=== PATIENT | male | born 1990 | race Caucasian/White ===

== ENCOUNTER 2016-06-22 14:00 | Outpatient (RCR) | payer OTHER | END 2016-06-27 | disposition home or self-care (01) | LOC: M OUTALCOH 14:00 | PROVIDERS: ATTEND Psychiatry & Neurology Psychiatry | DX: F12.20 Cannabis dependence, uncomplicated (principal); F15.20 Other stimulant dependence, uncomplicated; F17.200 Nicotine dependence, unspecified, uncomplicated ==

== ENCOUNTER 2016-07-24 08:45 | Outpatient (RCR) | payer MEDICAID | END 2016-07-25 | LOC: M OUTALCOH 08:45 | PROVIDERS: ATTEND Psychiatry & Neurology Psychiatry | DX: F15.20 Other stimulant dependence, uncomplicated (principal); F12.20 Cannabis dependence, uncomplicated; F17.200 Nicotine dependence, unspecified, uncomplicated ==

== ENCOUNTER 2016-08-23 16:00 | Outpatient (RCR) | payer MEDICAID | END 2016-08-25 | LOC: M OUTALCOH 16:00 | PROVIDERS: ATTEND Psychiatry & Neurology Psychiatry | DX: F12.20 Cannabis dependence, uncomplicated (principal); F15.20 Other stimulant dependence, uncomplicated; F17.200 Nicotine dependence, unspecified, uncomplicated ==

== ENCOUNTER 2016-09-20 16:00 | Outpatient (RCR) | payer MEDICAID | END 2016-09-24 | LOC: M OUTALCOH 16:00 | PROVIDERS: ATTEND Psychiatry & Neurology Psychiatry | DX: F17.200 Nicotine dependence, unspecified, uncomplicated (principal); F15.20 Other stimulant dependence, uncomplicated; F12.20 Cannabis dependence, uncomplicated ==

== ENCOUNTER 2016-10-24 08:00 | Outpatient (RCR) | payer MEDICAID | END 2016-10-25 | LOC: M OUTALCOH 08:00 | PROVIDERS: ATTEND Psychiatry & Neurology Psychiatry | DX: F17.200 Nicotine dependence, unspecified, uncomplicated (principal); F15.20 Other stimulant dependence, uncomplicated; F12.20 Cannabis dependence, uncomplicated ==

== ENCOUNTER 2016-11-23 14:00 | Outpatient (RCR) | payer MEDICAID | END 2016-11-24 | LOC: M OUTALCOH 14:00 | PROVIDERS: ATTEND Psychiatry & Neurology Psychiatry | DX: F17.200 Nicotine dependence, unspecified, uncomplicated (principal); F15.20 Other stimulant dependence, uncomplicated; F12.20 Cannabis dependence, uncomplicated ==

== ENCOUNTER 2016-12-08 09:00 | Outpatient (RCR) | payer MEDICAID, SELFPAY | END 2016-12-25 | LOC: M OUTALCOH 09:00 | PROVIDERS: ATTEND Psychiatry & Neurology Psychiatry | DX: F17.200 Nicotine dependence, unspecified, uncomplicated (principal); F15.20 Other stimulant dependence, uncomplicated; F12.20 Cannabis dependence, uncomplicated ==

== ENCOUNTER → 2017-07-02 | Outpatient (CLI) | payer OTHER | LOC: M OUTALCOH 08:15 | DX: Z13.9 Encounter for screening, unspecified (principal); F15.20 Other stimulant dependence, uncomplicated ==

== ENCOUNTER 2017-07-12 09:00 | Outpatient (RCR) | payer OTHER | END 2017-07-25 | LOC: M OUTALCOH 07-16 16:00 | DX: F15.20 Other stimulant dependence, uncomplicated (principal); F17.200 Nicotine dependence, unspecified, uncomplicated ==

== ENCOUNTER 2017-07-26 15:54 | Outpatient (RCR) | payer OTHER | END 2017-08-25 | LOC: M OUTALCOH 15:54 | DX: F15.20 Other stimulant dependence, uncomplicated (principal); F17.200 Nicotine dependence, unspecified, uncomplicated ==

== ENCOUNTER 2017-08-27 09:56 | Outpatient (RCR) | payer OTHER | END 2017-09-24 | LOC: M OUTALCOH 09-03 16:00 | DX: F15.20 Other stimulant dependence, uncomplicated (principal); F17.200 Nicotine dependence, unspecified, uncomplicated ==

== ENCOUNTER 2017-09-25 16:17 | Outpatient (RCR) | payer OTHER | END 2017-10-25 | LOC: M OUTALCOH 16:17 | DX: F15.20 Other stimulant dependence, uncomplicated (principal); F17.200 Nicotine dependence, unspecified, uncomplicated ==

== ENCOUNTER 2018-05-23 16:18 | Emergency (ER) | payer OTHER ==
[~2018-05-23] VITALS: Ht 182.9 cm; Wt 68.2 kg
--- NOTE | 2018-05-23 17:25 | REP ---
Head CT without contrast: History: Loss of consciousness. Comparison study: No comparison study. CT findings: Bone window settings demonstrate an intact bony calvarium. There is no evidence of skull fracture or incidental bony calvarial lesion. The visualized paranasal sinuses appear clear. No intraorbital abnormality is seen. On soft tissue window setting images; the lateral, third, and fourth ventricles are normal in size and position. Wilson-white differentiation pattern is normal above and below the tentorium. There are is no evidence of intracranial hemorrhage. No mass, edema, infarction, or midline shift is seen. No extra-axial fluid collection is appreciated. Impression: Negative noncontrast head CT. Electronically Signed by Nico Horan MD 05/23/2018 05:16 P
[2018-05-23] MEDS ORDERED: ADACEL/BOOSTRIX VACCINE (DIPHTH/PERTUSS/ACELL/TETANUS)0.5ML SYR (90715) IM ONE (17:45)
[2018-05-23 18:10] VITALS: BP 112/72
== END 2018-05-23 18:11 | disposition home or self-care (01) ==
LOC: M ED 16:18
DX: S01.01XA Laceration without foreign body of scalp, initial encounter (principal); W19.XXXA Unspecified fall, initial encounter; Y92.89 Other specified places as the place of occurrence of the external cause; Y99.0 Civilian activity done for income or pay; F17.210 Nicotine dependence, cigarettes, uncomplicated; Z88.0 Allergy status to penicillin

== ENCOUNTER 2018-11-07 12:44 | Emergency (ER) | payer OTHER, SELFPAY ==
[~2018-11-07] VITALS: Ht 182.9 cm; Wt 66.9 kg
[2018-11-07] MEDS ORDERED: LIDOCAINE 2% MDV 20 ML VIAL SC ONE (13:00)
--- NOTE | 2018-11-07 13:56 | REP ---
LEFT 3RD DIGIT, FOUR VIEWS: Four views left 3rd digit performed and demonstrate no fracture, dislocation, or intrinsic bone disease. There is soft tissue disruption at the tip of the digit without evidence of radiopaque foreign body in this region. Electronically Signed by Jose Wilson MD 11/07/2018 04:44 P
[2018-11-07 14:08] VITALS: BP 116/79
[2018-11-07] MEDS ORDERED: KEFL500C17 PO (14:10)
== END 2018-11-07 14:16 | disposition home or self-care (01) ==
LOC: M ED 12:44
DX: S61.213A Laceration without foreign body of left middle finger without damage to nail, initial encounter (principal); W26.8XXA Contact with other sharp object(s), not elsewhere classified, initial encounter; Y92.89 Other specified places as the place of occurrence of the external cause; Y99.0 Civilian activity done for income or pay; Z88.0 Allergy status to penicillin; F17.210 Nicotine dependence, cigarettes, uncomplicated

== ENCOUNTER 2021-03-16 17:12 | Emergency (ER) | payer SELFPAY ==
[~2021-03-16] VITALS: Ht 182.9 cm; Wt 63.6 kg
[~2021-03-16 17:12] MED LIST: KEFL500C17 PO
--- OUTSIDE RECORDS SUMMARY | 2021-03-16 17:17 | CCD ---
Author Author [facility] Organization [facility] Address Unknown Phone Unavailable Support Name Relationship Address Phone CHANA LOUIE Next Of Kin [address] [place] [address] [employer] Next Of Kin [address] [place] [phone] [employer] G[employer] Next Of Kin [address] [phone] [employer] X279 Next Of Kin Unknown MIKEY MORENO Next Of Kin Unknown UE Next Of Kin Unknown Unavailable ST Next Of Kin Unknown Unavailable R [employer] Next Of Kin [place], [place] [address] MIKEY MORENO Next Of Kin [address] [place] [address] GLADIS CULLEN Next Of Kin [address] [address] Re-disclosure Warning The records that you are about to access may contain information from federally-assisted alcohol or drug abuse programs. If such information is present, then the following federally mandated warning applies: This information has been disclosed to you from records protected by federal confidentiality rules (42 CFR part 2). The federal rules prohibit you from making any further disclosure of this information unless further disclosure is expressly permitted by the written consent of the person to whom it pertains or as otherwise permitted by 42 CFR part 2. A general authorization for the release of medical or other information is NOT sufficient for this purpose. The Federal rules restrict any use of the information to criminally investigate or prosecute any alcohol or drug abuse patient.The records that you are about to access may contain highly sensitive health information, the redisclosure of which is protected by Article 27-F of the [facility] Public Health law. If you continue you may have access to information: Regarding HIV / AIDS; Provided by facilities licensed or operated by the [facility] Office of Mental Health; or Provided by the [facility] Office for People With Developmental Disabilities. If such information is present, then the following [facility] mandated warning applies: This information has been disclosed to you from confidential records which are protected by state law. State law prohibits you from making any further disclosure of this information without the specific written consent of the person to whom it pertains, or as otherwise permitted by law. Any unauthorized further disclosure in violation of state law may result in a fine or halfway sentence or both. A general authorization for the release of medical or other information is NOT sufficient authorization for further disc losure. Medications No Information Insurance Providers Payer name Policy type / Coverage type Policy ID Covered democrat ID Covered democrat's relationship to ya Policy Ya Plan Information HMO BLUE [id number] SP [id number] [employer] O [id number] S [id number] [employer] SP [employer] [id number] SP [id number] CHELSI [id number] SP [id number] 100 O UNAVAILABLE UNAVAILA BLE OTHER WORKERS COMPENSATION [id number] SP [id number] MEDICAID [id number] SP [id number] SELF PAY ONLY [id number] SP [id number] [facility] [id number] SP [id number] [facility] [id number] SP [id number] SELF PAY ONLY UNK SP UNK SELF PAY UNAVAILABLE SP UNAVAILA BLE R FACTOR UNAVAILABLE UNAVAILA BLE SELF PAY ONLY [id number] SP [id number] Problems, Conditions, and Diagnoses No Information Surgeries/Procedures No Information Results ID Date Data Source [id number] 05/17/2020 12:00:00 AM EST [facility] Name Value Range Interpretation Code Description Data Aure rce(s) Supporting Document(s) SARS-CoV-2 (COVID-19) RNA [Presence] in Respiratory specimen by CONY with probe detection [facility] This lab was ordered by [facility] and reported by [employer] Procedure Social History No Information
--- OUTSIDE RECORDS SUMMARY | 2021-03-16 18:49 | CCD ---
Author Author [facility] Organization [facility] Address Unknown Phone Unavailable Support Name Relationship Address Phone TACOBLWTN Next Of Kin [address] [place] [address] CHANA LOUIE Next Of Kin [address] [place] [address] [employer] Next Of Kin [address] [place] [address] [employer] Next Of Kin [address] [phone] [employer] X279 Next Of Kin Unknown [phone] MIKEY MORENO Next Of Kin Unknown UE Next Of Kin Unknown Unavailable ST Next Of Kin Unknown Unavailable R [employer] Next Of Kin [place], [place] [address] MIKEY MORENO Next Of Kin [address] [place] [address] GLADIS CULLEN Next Of Kin [address] [address] Re-disclosure Warning The records that you are [...] is protected by Article 27-F of the [place] Public Health law. If you continue you may have access to information: Regarding HIV / AIDS; Provided by facilities licensed or operated by the [facility] Office of Mental Health; or Provided by the [facility] Office for People With Developmental Disabilities. If such information is present, then the following [facility] mandated warning applies: This information has been [...] law may result in a fine or assisted sentence or both. A general authorization for the release of medical or other information is NOT sufficient authorization for further disc losure. Medications No Information Insurance Providers Payer name Policy type / Coverage type Policy ID Covered libertarian ID Covered libertarian's relationship to ya Policy Ya Plan Information HMO BLUE [id number] SP [id number] [employer] O [id number] S [id number] [employer] SP [employer] [id number] SP [id number] CHELSI [id number] SP [id number] 100 O UNAVAILABLE UNAVAILA BLE OTHER WORKERS COMPENSATION [id number] SP [id number] MEDICAID [id number] SP [id number] SELF PAY ONLY [id number] SP [id number] [facility] [id number] SP [id number] [facility] [id number] SP [id number] SELF PAY ONLY UNK SP UNK SELF PAY UNAVAILABLE SP UNAVAILA BLE R FACTOR UNAVAILABLE UNAVAILA BLE SELF PAY ONLY [id number] SP [id number] Problems, Conditions, and Diagnoses No Information Surgeries/Procedures No Information Results ID Date Data Source [id number] 05/17/2020 12:00:00 AM EST [facility] Name Value Range Interpretation Code Description Data Aure rce(s) Supporting Document(s) SARS-CoV-2 (COVID-19) RNA [Presence] in Respiratory specimen by CONY with probe detection [facility] This lab was ordered by [facility] and reported by [employer]. Procedure Social History No Information
[2021-03-16 19:02] LABS: HEMATOCRIT 39.1 % (42.0-52.0); HEMOGLOBIN 13.4 g/dl (13.5-17.5); MEAN CORPUSCULAR HEMOGLOBIN 30.8 pg (27.0-33.0); MEAN CORPUSCULAR HGB CONC 34.3 g/dl (32.0-36.5); MEAN CORPUSCULAR VOLUME 89.9 fl (80.0-96.0); PLATELET COUNT, AUTOMATED 178 10^3/uL (150-450); RED BLOOD COUNT 4.35 10^6/uL (4.30-6.10); WHITE BLOOD COUNT 5.9 10^3/uL (4.0-10.0)
[2021-03-16 19:35] LABS: RSV AMPLIFICATION NEGATIVE (NEGATIVE)
[2021-03-16 19:39] LABS: ALBUMIN 3.8 GM/DL (3.2-5.2); ALT/SGPT 21 U/L (12-78); BILIRUBIN,DIRECT 0.2 MG/DL (0.0-0.2); BILIRUBIN,TOTAL 0.6 MG/DL (0.2-1.0); BLOOD UREA NITROGEN 7 MG/DL (7-18); CALCIUM LEVEL 8.5 MG/DL (8.5-10.1); CARBON DIOXIDE LEVEL 31 MEQ/L (21-32); CHLORIDE LEVEL 104 MEQ/L (98-107); CREATININE FOR GFR 0.91 MG/DL (0.70-1.30); GLOMERULAR FILTRATION RATE > 60.0 (>60); GLUCOSE, FASTING 89 MG/DL (70-100); POTASSIUM SERUM 3.8 MEQ/L (3.5-5.1); SODIUM LEVEL 139 MEQ/L (136-145); TOTAL PROTEIN 7.8 GM/DL (6.4-8.2)
[2021-03-16 19:40] LABS: ACETAMINOPHEN LEVEL < 2.0 UG/ML (10.0-30.0); ETHYL ALCOHOL (ETHANOL) < 0.003 % (0.000-0.010)
[2021-03-16 19:52] LABS: SALICYLATE LEVEL < 1.7 MG/DL (5.0-30.0)
[2021-03-16 20:11] LABS: AMPHETAMINES LEVEL URINE POSITIVE (NEGATIVE); BARBITURATES URINE NEGATIVE (NEGATIVE); BENZODIAZEPINES URINE NEGATIVE (NEGATIVE); CANNABINOIDS URINE POSITIVE (NEGATIVE); COCAINE METABOLITE URINE NEGATIVE (NEGATIVE); METHADONE URINE NEGATIVE (NEGATIVE); OPIATES URINE NEGATIVE (NEGATIVE); PHENCYCLIDINE URINE NEGATIVE (NEGATIVE)
[2021-03-16 22:46] VITALS: BP 128/71
== END 2021-03-16 22:57 | disposition home or self-care (01) ==
LOC: M ED 17:12
DX: U07.1 COVID-19 (principal); F43.0 Acute stress reaction; F19.10 Other psychoactive substance abuse, uncomplicated; F17.290 Nicotine dependence, other tobacco product, uncomplicated; Z88.0 Allergy status to penicillin

== ENCOUNTER 2022-12-02 15:18 | Emergency (ER) | payer OTHER, SELFPAY ==
[~2022-12-02] VITALS: Ht 180.3 cm; Wt 81.8 kg
[2022-12-02] MEDS ORDERED: LIDOCAINE 1% MDV 20ML VIAL SC ONE (17:40)
[2022-12-02] MEDS ORDERED: BOOSTRIX VACCINE (TETANUS/DIPHTH/ACEL. PERTUSSIS) 0.5ML SYR IM ONE (17:40)
[2022-12-02] MEDS ORDERED: BACT800T5 PO (18:10)
[2022-12-02 18:30] VITALS: BP 129/80; TEMP 99; O2SAT 96
== END 2022-12-02 18:31 | disposition home or self-care (01) ==
LOC: M ED 15:18
DX: S51.811A Laceration without foreign body of right forearm, initial encounter (principal); W26.8XXA Contact with other sharp object(s), not elsewhere classified, initial encounter; Y92.009 Unspecified place in unspecified non-institutional (private) residence as the place of occurrence of the external cause; Y93.89 Activity, other specified; Y99.8 Other external cause status; Z88.0 Allergy status to penicillin